=== PATIENT | male | born 1990 | race Caucasian/White ===

== ENCOUNTER 2023-06-22 13:10 | Emergency (ER) | payer MEDICAID, SELFPAY ==
[2023-06-22 13:21] VITALS: BP 119/75; PULSE 83; RESP 16; TEMP 36.7; O2SAT 98; BMI 22.2
[2023-06-22 13:25] LABS: Glucometer 126 mg/dL (74-106)
--- NOTE | 2023-06-22 13:31 | ECG_ITS ---
[facility] Test Date: 2023-06-22 Pat Name: RAUL JONES Department: Room: - Gender: Male Director Of Home Health Services: : 1990 Requested By: [id number] Order Number: [id number] Reading MD: OWEN GAUTAM Measurements Intervals [place] Rate: 77 P: 72 HI: 160 QRS: 85 QRSD: 92 T: 74 QT: 398 QTc: 429 Interpretive Statements 1100 Sinus rhythm 1102 Sinus arrhythmia 9110 normal ECG No previous ECG available for comparison Electronically Signed On 06-23-2023 7:13:32 EST by OWEN GAUTAM
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
[2023-06-22 13:44] LABS: pH VBG 7.432 (7.330-7.430)
[2023-06-22 13:45] LABS: PCO2 VBG 37.2 mmHg (40.0-52.0)
[2023-06-22] MEDS: 0.9 % SODIUM CHLORIDE 1,000 ML 999 ML IV (13:47)
[2023-06-22 13:52] LABS: Basophils Absolute Auto 0.1 10^3/uL (0.0-0.1); Basophils Percent Auto 0.7 % (0.2-2.0); Eosinophils Absolute Auto 0.1 10^3/uL (0.0-0.7); Eosinophils Percent Auto 0.7 % (0.9-7.0); Hematocrit 41.3 % (42.0-54.0); Immature Granulocytes Abs Auto 0.02 10^3/uL (0.00-0.03); Immature Granulocytes Pct Auto 0.2 % (0.0-0.5); Lymphocytes Absolute Auto 1.5 10^3/uL (1.2-3.8); Lymphocytes Percent Auto 17.6 % (20.5-60.0); Mean Corpuscular HGB Conc 33.9 g/dL (29.9-35.2); Mean Corpuscular Volume 88.6 fL (80.0-94.0); Mean Platelet Volume 9.3 fL (9.5-13.5); Monocytes Absolute Auto 0.7 10^3/uL (0.3-0.8); Monocytes Percent Auto 8.4 % (1.7-12.0); Neutrophils Absolute Auto 6.2 10^3/uL (1.4-6.5); Neutrophils Percent Auto 72.4 % (43.0-75.0); Platelet Count 317 10^3/uL (150-450); Red Blood Count 4.66 10^6/uL (4.70-6.10); Red Cell Distribution Width 11.4 % (11.0-15.0); White Blood Count 8.5 10^3/uL (4.0-11.0)
[2023-06-22 13:57] LABS: Acetone NEGATIVE (NEGATIVE)
[2023-06-22 14:02] LABS: Lactate/Lactic Acid 0.7 mmol/L (0.4-2.0)
[2023-06-22 14:11] LABS: Alanine Aminotransferase 22 U/L (16-63); Albumin Globulin Ratio 1.2; Albumin Level 3.8 g/dL (3.4-5.0); Alkaline Phosphatase 70 U/L (46-116); Anion Gap 13.5; Aspartate Amino Transferase 21 U/L (15-37); BUN Creatinine Ratio 16.9; Bilirubin Total 0.4 mg/dL (0.2-1.0); Calcium 8.7 mg/dL (8.5-10.1); Carbon Dioxide 25.9 mmol/L (21.0-32.0); Chloride 102 mmol/L (98-107); Estimated GFR (African America >60 (>=60); Estimated GFR (Non-African Ame >60 (>=60); Ethanol <3 mg/dL; Globulin 3.3 g/dL; Glucose 122 mg/dL (74-106); Potassium 3.4 mmol/L (3.5-5.1); Sodium 138 mmol/L (136-145); Total Protein 7.1 g/dL (6.4-8.2); Troponin I High Sensitivity 9.2 pg/mL (4.0-76.1)
--- NOTE | 2023-06-22 15:59 | CM.NOTE ---
ED staff called voicing patient is currently homeless and in need of a residential. Spoke with nurse Granado and real estate legal secretary Kendell. Nurse states patient is medically stable and refusing to go to any shelters that are not local. Nurse has already made multiple phone calls an no local shelters are taking in people at this time. I offered to make further calls for the patient and asked patient if he wanted me to do this, patient states I called a family friend from [place] and they are coming here to pick me up . I asked the patient two separate times your family friend is picking you up from the hospital, correct? Patient states yes. I voiced the importance of having someone come to hospital and pick him up and patient voiced yes. RN Vannesa updated on my conversation with the patient. Pt. is alert and oriented and appropriate when responding to my questions. Pt. denies any other needs. I did give patient a list of homeless shelters that the hospital calls if in need and i wrote down instructions for [address] for the patient if he finds himself in need in the future. Pt. states thank you so much and denies any other needs at this time.
--- NOTE | 2023-06-22 16:10 | CM.NOTE ---
YAHIR Granado also notified that if patient changes his mind and does want to go to a homeless senior care not local that is accepting patients, Haleigh Saleh in administration has approved to pay for cost of a Taxi ride, if needed.
== END 2023-06-22 16:24 | disposition home or self-care (01) ==
PROVIDERS: Physician Assistant; Emergency Provider Emergency Medicine
DX: R53.1 Weakness (principal); Z59.02 Unsheltered homelessness; Z59.48 Other specified lack of adequate food; F17.200 Nicotine dependence, unspecified, uncomplicated; E11.9 Type 2 diabetes mellitus without complications
CPT/HCPCS: 36415; 80053; 80307; 80320; 82009; 82800; 83605; 84443; 84484; 85025; 93005; 99284